=== PATIENT | male | born 1975 | race American Indian/Alaskan Native ===

== ENCOUNTER 2019-09-24 15:04 | Emergency (ER) | payer SELFPAY ==
[~2019-09-24] VITALS: Ht 180.3 cm; Wt 90.7 kg
[2019-09-24] MEDS ORDERED: GLUCOPHAGE500 MG PO (16:54)
== END 2019-09-24 17:14 | disposition home or self-care (01) ==
LOC: ED 15:04
DX: H57.12 Ocular pain, left eye (principal); E11.65 Type 2 diabetes mellitus with hyperglycemia
CPT/HCPCS: 99284; A9270